=== PATIENT | male | born 1990 | race African-American/Black ===

== ENCOUNTER 2022-03-28 12:00 | Emergency (ER) | payer MEDICAID, OTHER ==
[~2022-03-28] VITALS: Ht 165.1 cm; Wt 55.0 kg
[2022-03-28] MEDS ORDERED: HYDROCODONE/ACETAMINOPHEN 5/325MG TABLET PO ONE (12:15)
[2022-03-28] MEDS ORDERED: NAP5EC MT (12:53)
[2022-03-28] MEDS ORDERED: HYDR-4001 MT (12:53)
[2022-03-28 13:36] VITALS: BP 126/73
== END 2022-03-28 13:37 | disposition home or self-care (01) ==
LOC: ER 12:07
DX: S62.657A Nondisplaced fracture of middle phalanx of left little finger, initial encounter for closed fracture (principal); W22.8XXA Striking against or struck by other objects, initial encounter; Y93.89 Activity, other specified; Y92.89 Other specified places as the place of occurrence of the external cause
CPT/HCPCS: 29125; 73130; 99283